=== PATIENT | male | born 1930 | race Caucasian/White ===

== ENCOUNTER 2018-06-21 21:03 | Inpatient (IN) | payer MEDICARE, BC ==
[~2018-06-21] VITALS: Ht 172.7 cm; Wt 56.5 kg
[~2018-06-21 21:03] MED LIST: ASPI-817 PO; ATEN-51 PO; LOSA50TA14 PO
[2018-06-22] VITALS (10 sets, daily range): BP systolic 117–147; BP diastolic 56–73; PULSE 55–80; RESP 18–20; Ht 172.7 cm; Wt 56.5 kg
[2018-06-22] MEDS ORDERED: HYDR-4012 PO (01:50)
[2018-06-22] MEDS ORDERED: SOD CHLORIDE 0.9% 1,000 ML IV SCH (02:27)
[2018-06-22] MEDS ORDERED: ACETAMINOPHEN 325 MG TAB PO PRN ×2 (02:30→03:30)
[2018-06-22] MEDS ORDERED: ONDANSETRON 4 MG INJ IV PRN (02:30)
--- NOTE | 2018-06-22 02:33 | ERD ---
ER Documentation Chief Complaint Chief Complaint bleeding rectally x 2days HPI This is an 87-year-old male with a history of a pacemaker placement and hypertension who presents to the ER for evaluation of right blood from the anus. The patient states that he has had rectal bleeding for approximately 2 days and states he is feeling slightly weak. The patient states that he is scheduled to have a pacemaker removal and replacement done next week and he was concerned and came to the ER for evaluation after speaking to his physician's office Dr. Bell who told him to come to the emergency room ROS All systems reviewed and are negative except as per history of present illness. Medications Home Meds Reported Medications Hydrocodone/Acetaminophen ([place] 7.5-325 Tablet) 1 Each Tablet, 1 EACH PO, TAB 06/22/18 Discontinued Reported Medications Atenolol* (Atenolol*) 25 Mg Tablet, 25 MG PO DAILY, TAB 04/01/15 Losartan Potassium* (Losartan Potassium*) 50 Mg Tablet, 25 MG PO DAILY, TAB 04/01/15 Aspirin* (Aspirin* EC) 81 Mg Tablet.dr, 81 MG PO DAILY, TAB 04/01/15 Allergies Allergies: Coded Allergies: No Known Allergies (Unverified Allergy, Unknown, 06/22/18) PMhx/Soc History of Surgery: Yes (PACEMAKER, LEFT SHOULDER OPA, MANUEL, INGUINAL HERNIA, TONSILLECTOMY) Anesthesia Reaction: No Hx Neurological Disorder: No Hx Respiratory Disorders: No Hx Cardiac Disorders: Yes (PT HAS ARTIFICIAL HEART VALVE) Hx Psychiatric Problems: No Hx Miscellaneous Medical Probl: No Hx Alcohol Use: No Hx Substance Use: No Hx Tobacco Use: No Smoking Status: Never smoker Physical Exam Vitals Vital Signs Date Temp Pulse Resp B/P (MAP) Pulse Ox O2 O2 Flow FiO2 Time Delivery Rate 06/21/18 97.9 64 20 138/70 94 21:13 (92) Physical Exam INITIAL VITAL SIGNS: Reviewed by me GENERAL: The patient is well developed and appropriate for usual state of health in no apparent distress HEENT: Pupils equal, round, and reactive to light. EOMI. There is no scleral icterus. NECK: C-spine is soft and supple, there is no meningismus. There is no cervical lymphadenopathy. LUNGS: Clear to auscultation bilaterally. There are no rales, wheezes or rhonchi. HEART: Regular rate and rhythm, no murmurs, clicks, rubs or gallops. ABDOMEN: Soft, non-tender, non-distended. There are bowel sounds in all four quadrants. No rebound or guarding. EXTREMITIES: There is no peripheral cyanosis or edema. No focal swelling or erythema. NEUROLOGICAL: The patient moves all four extremities with 5/5 strength. Cranial nerves II - XII are intact. Normal gait. Alert and oriented SKIN: There is no apparent rash or petechiae. Rectal exam: Dark red blood per rectum heme positive HEME/LYMPHATIC: There is no evidence of excessive bruising or lymphedema. PSYCHIATRIC: The patient does not appear anxious or depressed. Result Diagram: 06/22/18 0001 06/22/18 0001 Results 24 hrs Laboratory Tests Test 06/22/18 00:01 White Blood Count 8.5 10^3/ul Red Blood Count 4.74 10^6/ul Hemoglobin 13.8 g/dl Hematocrit 42.2 % Mean Corpuscular Volume 89.0 fl Mean Corpuscular Hemoglobin 29.1 pg Mean Corpuscular Hemoglobin Concent 32.7 g/dl Red Cell Distribution Width 12.9 % Platelet Count 216 10^3/UL Mean Platelet Volume 9.1 fl Immature Granulocytes % 0.500 % Neutrophils % 67.1 % Lymphocytes % 14.9 % Monocytes % 10.8 % Eosinophils % 5.8 % Basophils % 0.9 % Nucleated Red Blood Cells % 0.0 /100WBC Immature Granulocytes # 0.040 10^3/ul Neutrophils # 5.7 10^3/ul Lymphocytes # 1.3 10^3/ul Monocytes # 0.9 10^3/ul Eosinophils # 0.5 10^3/ul Basophils # 0.1 10^3/ul Nucleated Red Blood Cells # 0.0 10^3/ul Prothrombin Time 13.7 Sec Prothrombin Time Ratio 1.1 INR International Normalized Ratio 1.04 Activated Partial Thromboplast Time 30.0 Sec Sodium Level 142 mmol/L Potassium Level 4.4 mmol/L Chloride Level 106 mmol/L Carbon Dioxide Level 25 mmol/L Anion Gap 11 Blood Urea Nitrogen 33 mg/dl Creatinine 1.22 mg/dl Est Glomerular Filtrat Rate mL/min mL/min Glucose Level 87 mg/dl Calcium Level 10.8 mg/dl Total Bilirubin 0.6 mg/dl Direct Bilirubin 0.00 mg/dl Indirect Bilirubin 0.6 mg/dl Aspartate Amino Transf (AST/SGOT) 22 IU/L Alanine Aminotransferase (ALT/SGPT) 20 IU/L Alkaline Phosphatase 79 IU/L Troponin I 0.047 ng/ml Total Protein 7.5 g/dl Albumin 4.1 g/dl Globulin 3.40 g/dl Albumin/Globulin Ratio 1.20 Lipase 79 U/L Current Medications Medications Dose Sig/Estrellita Start Time Status Last (Trade) Ordered Route PRN Stop Time Admin Dose Reason Admin Sodium 1,000 ml @ [id number] IV 06/22/18 Chloride 80 mls/hr 02:27 06/22/18 14:56 Ondansetron 4 mg BRIDGE ORDER 06/22/18 HCl (Zofran PRN IV 02:30 06/23/18 Inj) NAUSEA AND/OR 02:29 VOMITING 650 mg ER BRIDGE 06/22/18 Acetaminophen PRN PO MILD 02:30 06/23/18 (Tylenol PAIN(1-3)OR 02:29 Tab) ELEVATED TEMP Procedures/MDM This 87-year-old male presents to the ER for evaluation of rectal bleeding. On my exam the patient had dark red blood per rectum which was heme positive. According to the patient and the patient's family members were at bedside this patient was sent in by his primary care physician Arabella for evaluation. This patient does have a hemoglobin of 13.8. He is remained hemodynamically stable. I advised the patient I cannot get a hold of his primary care physician however patient's family is adamant that they were told to come to the ER for admission. Since we have paged his PCP 3 times and has not heard back with the patient will be admitted to panel physician Dr. Arrington Departure Diagnosis: Primary Impression: Rectal bleeding Condition: NISHI Laurent DO Jun 22, 2018 02:33
[2018-06-22] MEDS ORDERED: DEXTROSE 5%-0.45% NACL 1,000 ML IV SCH (03:11)
[2018-06-22] MEDS ORDERED: ZOLPIDEM 5 MG TAB PO PRN (03:30)
[2018-06-22] MEDS ORDERED: ONDANSETRON 4 MG TAB PO PRN (03:30)
[2018-06-22] MEDS ORDERED: NACL 0.9% 3 ML SYG IV SCH (03:30)
[2018-06-22] MEDS: ATENOLOL 25 MG TAB PO SCH (09:00)
[2018-06-22] MEDS: LOSARTAN 25 MG TAB PO SCH (10:11)
[2018-06-22] MEDS: SOD CHLORIDE 0.9% 1,000 ML IV SCH (11:30)
--- NOTE | 2018-06-22 12:43 | HP ---
DATE OF ADMISSION: 06/22/2018 IDENTIFYING DATA: The patient is an 87-year-old male admitted to the hospital with the sudden onset of rectal bleeding. HISTORICAL EVENTS: The patient states it was 2 days ago that when sensing the need to have a bowel m ovement he noted some bright red blood in the toilet water in his stool and when "wiping" noted blood on the tissue paper. At that time, he had no discomfort when moving his bowels. Denied nausea, vom iting or abdominal pain. He was asymptomatic until the morning of admission when again noted some br ight red blood that occurred in a similar fashion. More importantly, it was late yesterday afternoon that he noted more profound bright red blood per rectum having several episodes of the same, sensing each time the need to move his bowels and only on one occasion was there any formed stool. Because of this, he elected to come to [facility] ER. He had no abdominal pain and vomiting and his bowel pattern prior to this episode was unremarkable, having no difficulty with rectal pain, bloatin g, diarrhea, weight loss. He has had some unchanged mild shortness of breath without chest pain. He denies dysuria or hematuria. MEDICATIONS: 1. Baby aspirin. 2. Cozaar 25 mg per day. 3. Atenolol 25 day. PAST MEDICAL HISTORY: Includes: 1. Aortic valve replacement in 02/2003. 2. History of hypertension. 3. Chronic interstitial lung disease. 4. History of prostate cancer undergoing radiation therapy for the same. 5. Placement of a pacemaker in 06/2005 with the need for replacement of a battery. 6. History of right leg sciatica, now quiescent. SOCIAL HISTORY: Does not smoke and does not drink. FAMILY HISTORY: To be reviewed later. PHYSICAL EXAMINATION: GENERAL: [place] elderly male in no acute distress. VITAL SIGNS: BP 117/78, pulse 72, respirations were 18. He was afebrile. EYES: Extraocular muscles were full. NOSE, MOUTH, AND THROAT: Normal. NECK: Supple. There was no jugular venous distention, thyroid enlargement or adenopathy. LUNGS: Basilar rales bilaterally. HEART: Rhythm regular. No third sound. I/ systolic murmur. ABDOMEN: Nontender. Liver and spleen were not palpable. No mass or tenderness were noted. RECTAL: No masses, bright red blood on the examining finger. EXTREMITIES: No edema. Calves nontender. Pulses were reduced. NEUROLOGIC: No lateralizing motor weakness. IMPRESSION: 1. Rectal bleeding, likely diverticular. Malignancy needs to be excluded. Last colonoscopy was in excess of 10 years ago. GI to see. 2. Prior placement of a pacemaker with now need for battery replacement. Will transfer to monitored floor. 3. Known interstitial lung disease. PLAN: As above, to be monitored. GI to see. Repeat hematocrit to be obtained in about 6 hours. Wi ll type and cross for 2 units of packed cells if needed. Dictated By: MYRANDA PÉREZ MD MR/NTS Conf#: [id number] DID#: [id number]
--- NOTE | 2018-06-22 20:51 | CONS ---
DATE OF ADMISSION: 06/22/2018 DATE OF CONSULTATION: TYPE OF CONSULTATION: Gastroenterology. Dear Dr. Pérez: Thank you for asking me to see Mr. Hammonds in GI consultation. HISTORY OF PRESENT ILLNESS: As you know, the patient is an 87-year-old white gentleman who has been experiencing the passing of bloody stools for the past 2 weeks on and off. He would bleed 1 time and the next 4 or 5 days he would not and again he would start bleeding again. Stool is soft, sometimes watery, mixed with blood, and no significant abdominal discomfort or cramps. The patient has not austin d any similar rectal bleeding in the past. He has a history of a colonoscopy many years ago. He als o has a history of having a valve replacement in the heart many years ago and he does not believe yenny t he is taking any blood-thinning medications. MEDICATIONS PRIOR TO THE ADMISSION: [place]. HOSPITAL MEDICATIONS: Currently in the hospital, the medications include: 1. Atenolol. 2. Cozaar. 3. Zofran. 4. Ambien. SOCIAL HISTORY: The patient does not smoke or drink. 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 PAST SURGICAL HISTORY: None other than the aortic valve replacement. He is not on any blood-thinnin g medications. PHYSICAL EXAMINATION: GENERAL: The patient is an 87-year-old white gentleman who at this time is alert. He is well built. VITAL SIGNS: He is afebrile. The blood pressure is 121/56. CARDIOVASCULAR: Normal heart sounds. RESPIRATORY: Normal breath sounds. ABDOMEN: Showed soft abdomen with no palpable masses. RECTAL: Exam showed evidence of dark red blood. LABORATORY WORKUP: On admission, done this morning, hemoglobin 13.8. This afternoon, it dropped peter n to 12.3. The coagulation prothrombin time is 13.7. INR is 1.04. The chemistry: Potassium 4.4, c alcium 10.8, bilirubin 0.6, AST 22, ALT 20, alkaline phosphatase 79, lipase is 79. The GI bleeding s can was ordered by me and it was found to be negative. CLINICAL IMPRESSION: The patient presenting with: 1. History of rectal bleeding, likely lower gastrointestinal sources. Rule out ischemic colitis, ru le out colorectal neoplasm, diverticulosis, etc. 2. He has history of a pacemaker placed in the past and history of chronic interstitial lung disease and prostate cancer, undergoing radiation therapy. 3. History of hypertension. 4. Also has a history of sciatica. 5. He had a pacemaker put in in 2005 and this is due for a change of the pacemaker to be performed b ecause of battery life which is coming to end. PLAN: At this time, recommend EGD and colonoscopy and also recommend cardiology consultation for a c ardiac clearance from the pacemaker standpoint. Dictated By: SAAD BARKSDALE MD NC/NTS Conf#: [id number] DID#: [id number] CC: MYRANDA PÉREZ MD;*End*
[2018-06-23] VITALS (11 sets, daily range): BP systolic 106–127; BP diastolic 52–65; PULSE 63–77; RESP 20
[2018-06-23] MEDS: SOD CHLORIDE 0.9% 1,000 ML IV SCH (06:56)
[2018-06-23] MEDS: ATENOLOL 25 MG TAB PO SCH (09:00)
[2018-06-23] MEDS: LOSARTAN 25 MG TAB PO SCH (09:03)
[2018-06-23] MEDS ORDERED: LACTULOSE 30ML CUP PO ONE (12:00)
[2018-06-23] MEDS ORDERED: LACTULOSE 30ML CUP GTB SCH (12:00)
--- NOTE | 2018-06-23 12:19 | PN ---
Date/Time of Note Date/Time of Note DATE: 06/23/18 TIME: 12:16 Assessment/Plan VTE Prophylaxis Risk score (from Ns)>0 risk: 3 SCD applied (from Ns): Yes Pharmacological prophylaxis: other Lines/Catheters IV Catheter Type (from [facility]): Peripheral IV Assessment/Plan Assessment/Plan 1. Lower gi bleeding, source to be determined once pacemaker status clarified with stable Hct. 2. Interstitial lung dz, will ck room air oxygen sat., 3. Aortic Valve prosthesis Result Diagram: 06/23/18 0521 06/23/18 0521 Results 24hrs Laboratory Tests Test 06/22/18 13:55 06/23/18 05:21 White Blood Count 7.2 8.4 Red Blood Count 4.16 L 3.99 L Hemoglobin 12.3 L 11.7 L Hematocrit 36.2 L 34.8 L Mean Corpuscular Volume 87.0 87.2 Mean Corpuscular Hemoglobin 29.6 29.3 Mean Corpuscular Hemoglobin Concent 34.0 33.6 Red Cell Distribution Width 13.0 12.8 Platelet Count 203 197 Mean Platelet Volume 9.4 9.8 Immature Granulocytes % 0.300 0.500 H Neutrophils % 65.6 67.6 Lymphocytes % 16.3 13.3 L Monocytes % 10.4 11.2 H Eosinophils % 6.1 6.2 Basophils % 1.3 1.2 Nucleated Red Blood Cells % 0.0 0.0 Immature Granulocytes # 0.020 0.040 H Neutrophils # 4.7 5.7 Lymphocytes # 1.2 1.1 Monocytes # 0.8 0.9 Eosinophils # 0.4 0.5 Basophils # 0.1 0.1 Nucleated Red Blood Cells # 0.0 0.0 Sodium Level 139 Potassium Level 4.3 Chloride Level 104 Carbon Dioxide Level 25 Anion Gap 10 Blood Urea Nitrogen 24 H Creatinine 1.13 Est Glomerular Filtrat Rate mL/min Glucose Level 78 Calcium Level 9.8 Phosphorus Level 3.0 Magnesium Level 1.9 Subjective 24 Hr Interval Summary Respiratory: No shortness of breath Cardiovascular: No chest pain, No orthopenea Gastrointestinal: other (was toldd by nursing assist that no blood was in his stool) Genitourinary: no complaints Musculoskeletal: no complaints Exam/Review of Systems Vital Signs Vitals Vital Signs Date Temp Pulse Resp B/P (MAP) Pulse Ox O2 O2 Flow FiO2 Time Delivery Rate 06/23/18 98.1 63 20 127/65 93 11:11 (85) 06/22/18 Room Air 08:19 Intake and Output 06/22/18 06/22/18 06/23/18 1515:00 23:00 07:00 IntakeIntake Total 315 ml 720 ml OutputOutput Total 750 ml BalanceBalance 315 ml -30 ml Exam Neck: No jvd Respiratory: diminished breath sounds (dry rales bilat) Cardiovascular: regular rate and rhythm Gastrointestinal: soft Extremities: No edema Medications Medications Current Medications IV Flush (NS 3 ml) 3 ml PER PROTOCOL IV ; Start 06/22/18 at 03:30 Ondansetron HCl (Zofran Tab) 4 mg Q6H PRN PO NAUSEA AND/OR VOMITING; Start 06/22/18 at 03:30 Acetaminophen (Tylenol Tab) 650 mg Q6H PRN PO PAIN LEVEL 1-3 OR FEVER; Start 06/22/18 at 03:30 Zolpidem Tartrate (Ambien) 5 mg QHS PRN PO SLEEP; Start 06/22/18 at 03:30 Atenolol (Tenormin) 25 mg DAILY PO ; Start 06/22/18 at 09:00 Losartan Potassium (Cozaar) 25 mg DAILY PO Last administered on 06/23/18at 09:03; Admin Dose 25 MG; Start 06/22/18 at 09:00 Sodium Chloride 1,000 ml @ 50 mls/hr Q20H IV Last administered on 06/23/18at 06:56; Admin Dose 50 MLS/HR; Start 06/22/18 at 11:00 Lactulose (Enulose) 20 gm Q3 GTB ; Start 06/23/18 at 12:00; Stop 06/23/18 at 22:00 MYRANDA PÉREZ MD Jun 23, 2018 12:19
--- NOTE | 2018-06-23 13:07 | CONS ---
Date/Time of Note Date/Time of Note DATE: 06/23/18 TIME: 12:50 Assessment/Plan Assessment/Plan Assessment/Plan 87 yowm w/ AVR (02/18), htn, ILD, s/p PPM (06/23), and sciatica who presents with GI bleed. Asked for a pre-op eval. Will interrogate pt's PPM ([employer]) - trying to reach the rep. Pt is followed by Dr. Ren ([facility]), so will also check office records for last interrogation and battery life. Pt thinks he has 4 months left. If that is the case, should be able to proceed w/ GI procedure. He is otherwise stable from a cardiac standpoint w/ no signs or symptoms of angina or CHF. Result Diagram: 06/23/1821 06/23/18 0521 Results 24hrs Laboratory Tests Test 06/22/18 13:55 06/23/18 05:21 White Blood Count 7.2 8.4 Red Blood Count 4.16 L 3.99 L Hemoglobin 12.3 L 11.7 L Hematocrit 36.2 L 34.8 L Mean Corpuscular Volume 87.0 87.2 Mean Corpuscular Hemoglobin 29.6 29.3 Mean Corpuscular Hemoglobin Concent 34.0 33.6 Red Cell Distribution Width 13.0 12.8 Platelet Count 203 197 Mean Platelet Volume 9.4 9.8 Immature Granulocytes % 0.300 0.500 H Neutrophils % 65.6 67.6 Lymphocytes % 16.3 13.3 L Monocytes % 10.4 11.2 H Eosinophils % 6.1 6.2 Basophils % 1.3 1.2 Nucleated Red Blood Cells % 0.0 0.0 Immature Granulocytes # 0.020 0.040 H Neutrophils # 4.7 5.7 Lymphocytes # 1.2 1.1 Monocytes # 0.8 0.9 Eosinophils # 0.4 0.5 Basophils # 0.1 0.1 Nucleated Red Blood Cells # 0.0 0.0 Sodium Level 139 Potassium Level 4.3 Chloride Level 104 Carbon Dioxide Level 25 Anion Gap 10 Blood Urea Nitrogen 24 H Creatinine 1.13 Est Glomerular Filtrat Rate mL/min Glucose Level 78 Calcium Level 9.8 Phosphorus Level 3.0 Magnesium Level 1.9 Consultation Date/Type/Reason Admit Date/Time Jun 22, 2018 at 02:28 Date of Consultation: Jun 23, 2018 Type of Consult Reason for Consultation PPM, cardiac clearance Hx of Present Illness 87 yowm w/ AVR (02/18), htn, ILD, s/p PPM (06/23), and sciatica who presents with GI bleed. Pt reported hematochezia two days ago. Denies abdominal pain. He denies cp or sob. He is followed [place] Dr. Preston Ren ([place] [facility] Pt states his PPM ([facility] [facility]) has 4 months left on it's battery. He is currently V-paced. Past Medical History AVR 02/18 htn ILD PPM 06/23 prostate CA sciatica Medications Current Medications IV Flush (NS 3 ml) 3 ml PER PROTOCOL IV ; Start 06/22/18 at 03:30 Ondansetron HCl (Zofran Tab) 4 mg Q6H PRN PO NAUSEA AND/OR VOMITING; Start 06/22/18 at 03:30 Acetaminophen (Tylenol Tab) 650 mg Q6H PRN PO PAIN LEVEL 1-3 OR FEVER; Start 06/22/18 at 03:30 Zolpidem Tartrate (Ambien) 5 mg QHS PRN PO SLEEP; Start 06/22/18 at 03:30 Atenolol (Tenormin) 25 mg DAILY PO ; Start 06/22/18 at 09:00 Losartan Potassium (Cozaar) 25 mg DAILY PO Last administered on 06/23/18at 09:03; Admin Dose 25 MG; Start 06/22/18 at 09:00 Sodium Chloride 1,000 ml @ 50 mls/hr Q20H IV Last administered on 06/23/18at 06:56; Admin Dose 50 MLS/HR; Start 06/22/18 at 11:00 Lactulose (Enulose) 20 gm Q3 GTB ; Start 06/23/18 at 12:00; Stop 06/23/18 at 22:00 Allergies: Coded Allergies: No Known Allergies (Unverified Allergy, Unknown, 06/22/18) Social History Smoking Status: Former smoker Exam/Review of Systems Vital Signs Vitals Vital Signs Date Temp Pulse Resp B/P (MAP) Pulse Ox O2 O2 Flow FiO2 Time Delivery Rate 06/23/18 98.1 63 20 127/65 93 11:11 (85) 1/5/19 Room Air 08:19 Intake and Output 06/22/18 06/22/18 06/23/18 1515:00 23:00 07:00 IntakeIntake Total 315 ml 720 ml OutputOutput Total 750 ml BalanceBalance 315 ml -30 ml Exam Constitutional: alert; No distress Neck: supple; No jvd Respiratory: clear to auscultation Cardiovascular: regular rate and rhythm, other (1/6 KIKI) Extremities: No edema Neurological: nl mental status Medications Medications Current Medications IV Flush (NS 3 ml) 3 ml PER PROTOCOL IV ; Start 06/22/18 at 03:30 Ondansetron HCl (Zofran Tab) 4 mg Q6H PRN PO NAUSEA AND/OR VOMITING; Start 06/22/18 at 03:30 Acetaminophen (Tylenol Tab) 650 mg Q6H PRN PO PAIN LEVEL 1-3 OR FEVER; Start 06/22/18 at 03:30 Zolpidem Tartrate (Ambien) 5 mg QHS PRN PO SLEEP; Start 06/22/18 at 03:30 Atenolol (Tenormin) 25 mg DAILY PO ; Start 06/22/18 at 09:00 Losartan Potassium (Cozaar) 25 mg DAILY PO Last administered on 06/23/18at 09:03; Admin Dose 25 MG; Start 06/22/18 at 09:00 Sodium Chloride 1,000 ml @ 50 mls/hr Q20H IV Last administered on 06/23/18at 06:56; Admin Dose 50 MLS/HR; Start 06/22/18 at 11:00 Lactulose (Enulose) 20 gm Q3 GTB ; Start 06/23/18 at 12:00; Stop 06/23/18 at 22:00 Imaging Imaging Tele - V-paced @ [address] SANA MEYERS Jun 23, 2018 13:00
[2018-06-24] VITALS (12 sets, daily range): BP systolic 91–116; BP diastolic 55–66; PULSE 52–81; RESP 18–20
[2018-06-24] MEDS: SOD CHLORIDE 0.9% 1,000 ML IV SCH (05:42)
--- NOTE | 2018-06-24 08:52 | PN ---
Date/Time of Note Date/Time of Note DATE: 06/24/18 TIME: 08:50 Assessment/Plan VTE Prophylaxis Risk score [place]from [facility] [place] risk: 3 SCD applied (from [facility] [place]): Yes Pharmacological prophylaxis: NA/contraindicated (gi bleeding) Pharm contraindication: bleeding Lines/Catheters IV Catheter Type (from [facility]): Peripheral IV Assessment/Plan Assessment/Plan 1. Lower gi bleeding has clinically abated, colonoscopy pending 2. Aortic valve dz, stable 3. Paced rhythm, per cardiology pacemaker battery will last additional 30d, ? replace post colonoscopy- will rev with cardilogy 4. Interstitial lung dz, chronic, abd pending Result Diagram: 06/24/18 0518 06/23/18 0521 Results 24hrs Laboratory Tests Test 06/24/18 05:00 06/24/18 05:18 06/24/18 08:00 Urine Color STRAW Urine Clarity CLEAR Urine pH 5.0 Urine Specific [place] 1.008 Urine Ketones NEGATIVE Urine Nitrite NEGATIVE Urine Bilirubin NEGATIVE Urine Urobilinogen NEGATIVE Urine Leukocyte Esterase NEGATIVE Urine Hemoglobin NEGATIVE Urine Glucose NEGATIVE Urine Total Protein NEGATIVE White Blood Count 7.5 Red Blood Count 4.18 L Hemoglobin 12.4 L Hematocrit 36.7 L Mean Corpuscular Volume 87.8 Mean Corpuscular Hemoglobin 29.7 Mean Corpuscular 33.8 Hemoglobin Concent Red Cell Distribution Width 12.6 Platelet Count 207 Mean Platelet Volume 9.3 Immature Granulocytes % 0.300 Neutrophils % 65.2 Lymphocytes % 15.4 Monocytes % 11.9 H Eosinophils % 6.1 Basophils % 1.1 Nucleated Red Blood Cells % 0.0 Immature Granulocytes # 0.020 Neutrophils # 4.9 Lymphocytes # 1.2 Monocytes # 0.9 Eosinophils # 0.5 Basophils # 0.1 Nucleated Red Blood Cells # 0.0 Blood Gas Specimen Source Blood arterial Arterial Blood Date Drawn 06/24/2018 8:10:03 AM Arterial Blood pH 7.429 (Temp corrected) Arterial Blood pCO2 35.9 (Temp correct) Arterial Blood pO2 71.1 L (Temp corrected) Arterial Blood HCO3 23.2 Arterial Blood Base Excess -0.6 Arterial Blood 94.6 L Oxygen Saturation Clifford Test ACCEPTAB Arterial Blood Gas Right Radial Puncture Site Arterial 1.2 Blood Carboxyhemoglobin Arterial Blood Methemoglobin 0.1 Blood Gas A-a O2 Differential 35.6 H Oxyhemoglobin Percent 93.4 Blood Gas Temperature 37.0 Blood Gas Modality ROOM AIR FiO2 21.0 Blood Gas Notified Whom TM Blood Gas Notified Time 06/24/2018 8:19:35 AM Subjective 24 Hr Interval Summary Respiratory: No cough, No shortness of breath Cardiovascular: No chest pain, No orthopenea Gastrointestinal: other (has not had bm) Genitourinary: no complaints Exam/Review of Systems Vital Signs Vitals Vital Signs Date Temp Pulse Resp B/P (MAP) Pulse Ox O2 O2 Flow FiO2 Time Delivery Rate 06/24/18 98.3 78 18 111/61 96 07:31 (78) 06/22/18 Room Air 08:19 Intake and Output 06/23/18 06/23/18 06/24/18 1515:00 23:00 07:00 IntakeIntake Total 550 ml 720 ml OutputOutput Total 550 ml 775 ml BalanceBalance 0 ml -55 ml Exam Neck: No jvd Respiratory: clear to auscultation Cardiovascular: regular rate and rhythm Gastrointestinal: soft; No hepatomegaly, No splenomegaly Extremities: No edema Medications Medications Current Medications IV Flush (NS 3 ml) 3 ml PER PROTOCOL IV ; Start 06/22/18 at 03:30 Ondansetron HCl (Zofran Tab) 4 mg Q6H PRN PO NAUSEA AND/OR VOMITING; Start 06/22/18 at 03:30 Acetaminophen (Tylenol Tab) 650 mg Q6H PRN PO PAIN LEVEL 1-3 OR FEVER; Start 06/22/18 at 03:30 Zolpidem Tartrate (Ambien) 5 mg QHS PRN PO SLEEP; Start 06/22/18 at 03:30 Atenolol (Tenormin) 25 mg DAILY PO ; Start 06/22/18 at 09:00 Losartan Potassium (Cozaar) 25 mg DAILY PO Last administered on 06/23/18at 09:03; Admin Dose 25 MG; Start 06/22/18 at 09:00 Sodium Chloride 1,000 ml @ 50 mls/hr Q20H IV Last administered on 06/24/18at 05:42; Admin Dose 50 MLS/HR; Start 06/22/18 at 11:00 MYRANDA PÉREZ MD Jun 24, 2018 08:52
--- NOTE | 2018-06-24 09:03 | PN ---
DATE: 06/23/2018 SUBJECTIVE: The patient was admitted with rectal bleeding, etiology not known. GI bleeding scan was negative. Hemoglobin dropped to 11.7 from 13.8. He had no bleeding from the rectum today. He has got a pacemaker whose battery life is coming to the end. He needs EGD, colonoscopy. PLAN: The EGD and colonoscopy will be performed once the battery is fixed on his pacemaker. Dictated By: SAAD SMITH/NTS Conf#: [id number] DID#: [id number] CC: MYRANDA PÉREZ MD;*EndCC*
[2018-06-24] MEDS: ATENOLOL 25 MG TAB PO SCH (09:43)
[2018-06-24] MEDS: LOSARTAN 25 MG TAB PO SCH (09:43)
--- NOTE | 2018-06-24 14:41 | CONS ---
DATE OF ADMISSION: 06/22/2018 DATE OF CONSULTATION: The patient at this time is admitted for GI bleeding and he has rectal bleeding as well as a history of upper GI symptoms. Rule out peptic ulcer disease, colorectal neoplasm, diverticulosis, etc. He had issues with a pacemaker. According to Dr. Bell the pacemaker will be fine for 30 days as fa r as the battery is concerned. PHYSICAL EXAMINATION: GENERAL: He is alert. VITAL SIGNS: Afebrile. Temperature is 97.1, blood pressure 91/55. CARDIOVASCULAR: Normal heart sounds. RESPIRATORY: Normal breath sounds. ABDOMEN: Unremarkable. LABORATORY WORKUP: Hemoglobin is in the range of 11.4 CLINICAL IMPRESSION: Gastrointestinal bleeding, rule out bleeding ulcer disease, rule out colorectal neoplasm, diverticulosis. PLAN: Recommend EGD, colonoscopy tomorrow. Dictated By: SAAD BARKSDALE MD NC/NTS Conf#: [id number] DID#: [id number] CC: MYRANDA BELL MD;*EndCC*
[2018-06-24] MEDS: POLYETHYLENE GLYCOL 17 GM PACKET PO SCH ×2 (15:48→18:11)
[2018-06-24] MEDS: LACTULOSE 30ML CUP PO SCH ×3 (15:48→21:46)
--- NOTE | 2018-06-24 23:04 | CONS ---
Date/Time of Note Date/Time of Note DATE: 06/24/18 TIME: 22:56 Assessment/Plan Assessment/Plan Hospital Course GI bleed- lower, stable. plan for egd/colon tomorrow. 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 plan for endoscopy - s/p PPM, dependent. needs ppm gen change tonya at [facility] for 06/26 will cancel and reschedule. recommend clinical stability and no recurrent bleeding prior to proceeding with device placement. given EOL 1 mo can reschedule for next 1-2 weeks. - s/p avr stable Result Diagram: 06/24/18 0518 06/24/18 1437 Results 24hrs Laboratory Tests Test 06/24/18 05:00 06/24/18 05:18 06/24/18 08:00 06/24/18 14:37 Urine Color STRAW Urine Clarity CLEAR Urine pH 5.0 Urine Specific 1.008 [place] Urine Ketones NEGATIVE Urine Nitrite NEGATIVE Urine Bilirubin NEGATIVE Urine Urobilinogen NEGATIVE Urine Leukocyte NEGATIVE Esterase Urine Hemoglobin NEGATIVE Urine Glucose NEGATIVE Urine Total NEGATIVE Protein White Blood Count 7.5 Red Blood Count 4.18 L Hemoglobin 12.4 L Hematocrit 36.7 L Mean Corpuscular 87.8 Volume Mean Corpuscular 29.7 Hemoglobin Mean Corpuscular 33.8 Hemoglobin Concent Red Cell 12.6 Distribution Width Platelet Count 207 Mean Platelet 9.3 Volume Immature 0.300 Granulocytes % Neutrophils % 65.2 Lymphocytes % 15.4 Monocytes % 11.9 H Eosinophils % 6.1 Basophils % 1.1 Nucleated Red 0.0 Blood Cells % Immature 0.020 Granulocytes # Neutrophils # 4.9 Lymphocytes # 1.2 Monocytes # 0.9 Eosinophils # 0.5 Basophils # 0.1 Nucleated Red 0.0 Blood Cells # Blood Gas Specimen Blood arterial Source Arterial Blood 06/24/2018 8:10:03 Date Drawn AM Arterial Blood pH 7.429 (Temp corrected) Arterial Blood 35.9 pCO2 (Temp correct) Arterial Blood pO2 71.1 L (Temp corrected) Arterial Blood 23.2 HCO3 Arterial Blood -0.6 Base Excess Arterial Blood 94.6 L Oxygen Saturation Clifford Test ACCEPTAB Arterial Blood Gas Right Radial Puncture Site Arterial 1.2 Blood Carboxyhemog lobin Arterial Blood 0.1 Methemoglobin Blood Gas A-a O2 35.6 H Differential Oxyhemoglobin 93.4 Percent Blood Gas 37.0 Temperature Blood Gas Modality ROOM AIR FiO2 21.0 Blood Gas Notified TM Whom Blood Gas Notified 06/24/2018 8:19:35 Time AM Sodium Level 136 Potassium Level 4.4 Chloride Level 103 Carbon Dioxide 26 Level Anion Gap 7 Blood Urea 20 Nitrogen Creatinine 1.09 Est Glomerular Filtrat Rate mL/min Glucose Level 90 Calcium Level 9.9 Consultation Date/Type/Reason Admit Date/Time Jun 22, 2018 at 02:28 Initial Consult Date 06/23/18 Type of Consult cardiology Reason for Consultation ppm Requesting Provider: MYRANDA PÉREZ MD 24 HR Interval Summary Free Text/Dictation no acute events. no cp/sob/palp/dizziness. small blood in stool during colonscopy prep he states. no eliecer bleeding. Detailed Summary Eyes: no complaints ENT: no complaints Respiratory: no complaints Cardiovascular: no complaints Gastrointestinal: blood Exam/Review of Systems Vital Signs Vitals Vital Signs Date Temp Pulse Resp B/P (MAP) Pulse Ox O2 O2 Flow FiO2 Time Delivery Rate 06/24/18 61 21:06 06/24/18 97.9 20 116/61 98 19:50 (79) 06/24/18 Nasal 2.0 08:00 Cannula Intake and Output 06/23/18 06/23/18 06/24/18 1515:00 23:00 07:00 IntakeIntake Total 550 ml 720 ml OutputOutput Total 550 ml 775 ml BalanceBalance 0 ml -55 ml Exam Constitutional: alert, oriented Psych: no complaints Head: normocephalic Eyes: nl conjunctiva, EOMI ENMT: nl nasal mucosa & septum Neck: supple, non-tender; No jvd Respiratory: clear to auscultation, normal air movement Cardiovascular: regular rate and rhythm, nl pulses, systolic murmur; No edema Gastrointestinal: soft, non-tender Musculoskeletal: nl gait and stance Extremities: normal pulses 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, nl speech, nl strength Medications Medications Current Medications IV Flush (NS 3 ml) 3 ml PER PROTOCOL IV ; Start 06/22/18 at 03:30 Ondansetron HCl (Zofran Tab) 4 mg Q6H PRN PO NAUSEA AND/OR VOMITING; Start 06/22/18 at 03:30 Acetaminophen (Tylenol Tab) 650 mg Q6H PRN PO PAIN LEVEL 1-3 OR FEVER; Start 06/22/18 at 03:30 Zolpidem Tartrate (Ambien) 5 mg QHS PRN PO SLEEP; Start 06/22/18 at 03:30 Atenolol (Tenormin) 25 mg DAILY PO Last administered on 06/24/18at 09:43; Admin Dose 25 MG; Start 06/22/18 at 09:00 Losartan Potassium (Cozaar) 25 mg DAILY PO Last administered on 06/24/18at 09:43; Admin Dose 25 MG; Start 06/22/18 at 09:00 Sodium Chloride 1,000 ml @ 50 mls/hr Q20H IV Last administered on 06/24/18at 05:42; Admin Dose 50 MLS/HR; Start 06/22/18 at 11:00 Lactulose (Enulose) 20 gm Q3 PO Last administered on 06/24/18at 21:46; Admin Dose 20 GM; Start 06/24/18 at 15:00 Imaging Imaging cxr report reviewed ine EVERARDO Vizcarra Jun 24, 2018 23:04
[2018-06-25] VITALS (24 sets, daily range): BP systolic 91–124; BP diastolic 48–69; PULSE 68–98; RESP 16–28
[2018-06-25] MEDS: LACTULOSE 30ML CUP PO SCH ×6 (00:53→15:00)
[2018-06-25] MEDS: SOD CHLORIDE 0.9% 1,000 ML IV SCH ×2 (00:54→19:00)
[2018-06-25] MEDS: LOSARTAN 25 MG TAB PO SCH (08:20)
[2018-06-25] MEDS: ATENOLOL 25 MG TAB PO SCH (08:21)
--- NOTE | 2018-06-25 08:58 | PN ---
Date/Time of Note Date/Time of Note DATE: 06/25/18 TIME: 08:56 Assessment/Plan VTE Prophylaxis Risk score (from Ns)>0 risk: 6 SCD applied (from Ns): Yes Pharmacological prophylaxis: other (gi bleeding) Lines/Catheters IV Catheter Type (from Nrsg): Peripheral IV Assessment/Plan Assessment/Plan 1. Lower gi bleeding, colon planned today 2. Paced rhythm, cards note rev, still would prefer pacemaker batter change this admit if colon intervention uneventful 3. Labs rev 4. Interstitial lung dz, abg noted Result Diagram: 06/25/18 0453 06/25/18 045 Results 24hrs Laboratory Tests Test 06/24/18 14:37 06/25/18 04:53 Sodium Level 136 141 Potassium Level 4.4 4.2 Chloride Level 103 107 Carbon Dioxide Level 26 23 Anion Gap 7 11 Blood Urea Nitrogen 20 16 Creatinine 1.09 1.11 Est Glomerular Filtrat Rate mL/min Glucose Level 90 101 Calcium Level 9.9 10.2 White Blood Count 7.9 Red Blood Count 4.25 L Hemoglobin 12.6 L Hematocrit 37.5 L Mean Corpuscular Volume 88.2 Mean Corpuscular Hemoglobin 29.6 Mean Corpuscular Hemoglobin Concent 33.6 Red Cell Distribution Width 12.5 Platelet Count 217 Mean Platelet Volume 9.4 Immature Granulocytes % 0.300 Neutrophils % 68.0 Lymphocytes % 11.9 L Monocytes % 12.2 H Eosinophils % 6.6 Basophils % 1.0 Nucleated Red Blood Cells % 0.0 Immature Granulocytes # 0.020 Neutrophils # 5.4 Lymphocytes # 0.9 Monocytes # 1.0 H Eosinophils # 0.5 Basophils # 0.1 Nucleated Red Blood Cells # 0.0 Phosphorus Level 3.2 Magnesium Level 1.9 Subjective 24 Hr Interval Summary Cardiovascular: No chest pain, No edema, No lightheadedness, No orthopenea Gastrointestinal: no complaints, other (has not noted rec bleeding) Musculoskeletal: no complaints Exam/Review of Systems Vital Signs Vitals Vital Signs Date Temp Pulse Resp B/P (MAP) Pulse Ox O2 O2 Flow FiO2 Time Delivery Rate 06/25/18 Nasal 2.0 07:36 Cannula 06/25/18 97.8 73 18 117/62 97 07:30 (80) Intake and Output 06/24/18 06/24/18 06/25/18 1414:59 22:59 06:59 IntakeIntake Total 400 ml 1000 ml OutputOutput Total 175 ml 900 ml BalanceBalance 225 ml 100 ml Exam Neck: No jvd Respiratory: clear to auscultation Cardiovascular: regular rate and rhythm Gastrointestinal: soft Medications Medications Current Medications IV Flush (NS 3 ml) 3 ml PER PROTOCOL IV ; Start 06/22/18 at 03:30 Ondansetron HCl (Zofran Tab) 4 mg Q6H PRN PO NAUSEA AND/OR VOMITING; Start 06/22/18 at 03:30 Acetaminophen (Tylenol Tab) 650 mg Q6H PRN PO PAIN LEVEL 1-3 OR FEVER; Start 06/22/18 at 03:30 Zolpidem Tartrate (Ambien) 5 mg QHS PRN PO SLEEP; Start 06/22/18 at 03:30 Atenolol (Tenormin) 25 mg DAILY PO Last administered on 06/24/18at 09:43; Admin Dose 25 MG; Start 06/22/18 at 09:00 Losartan Potassium (Cozaar) 25 mg DAILY PO Last administered on 06/24/18at 09:43; Admin Dose 25 MG; Start 06/22/18 at 09:00 Sodium Chloride 1,000 ml @ 50 mls/hr Q20H IV Last administered on 06/25/18at 00:54; Admin Dose 50 MLS/HR; Start 06/22/18 at 11:00 Lactulose (Enulose) 20 gm Q3 PO Last administered on 06/25/18at 03:28; Admin Dose 20 GM; Start 06/24/18 at 15:00 MYRANDA PÉREZ MD Jun 25, 2018 08:57
--- NOTE | 2018-06-25 13:34 | PREAC ---
Date/Time of Note Date/Time of Note DATE: 06/25/18 TIME: 13:32 Anesthesia Eval and Record Evaluation Time Pre-Procedure Interview DATE: 06/25/18 TIME: 13:32 Age 87 Sex male NPO: 8 hrs Preoperative diagnosis Bloody stools Planned procedure EGD and colonoscopy Past Medical History Past Medical History: Includes Cardio: HTN, PPM/AICD, Other (aortic valve replacement ) Pulm: Other (Chronic interstitial lung disease.) Surgery & Anesthesia Issues No known issue Meds Anticoagulation: No Beta Mague within 24 hr: No Reason Beta Mague not given: Pt. 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 ) Reported Medications Hydrocodone/Acetaminophen (Coleman 7.5-325 Tablet) 1 Each Tablet, 1 EACH PO, TAB 06/22/18 Discontinued Reported Medications Atenolol* (Atenolol*) 25 Mg Tablet, 25 MG PO DAILY, TAB 04/01/15 Losartan Potassium* (Losartan Potassium*) 50 Mg Tablet, 25 MG PO DAILY, TAB 04/01/15 Aspirin* (Aspirin* EC) 81 Mg Tablet.dr, 81 MG PO DAILY, TAB 04/01/15 Current Medications IV Flush (NS 3 ml) 3 ml PER PROTOCOL IV ; Start 06/22/18 at 03:30 Ondansetron HCl (Zofran Tab) 4 mg Q6H PRN PO NAUSEA AND/OR VOMITING; Start 06/22/18 at 03:30 Acetaminophen (Tylenol Tab) 650 mg Q6H PRN PO PAIN LEVEL 1-3 OR FEVER; Start at 03:30 Zolpidem Tartrate (Ambien) 5 mg QHS PRN PO SLEEP; Start 06/22/18 at 03:30 Atenolol (Tenormin) 25 mg DAILY PO Last administered on 06/24/18at 09:43; Admin Dose 25 MG; Start 06/22/18 at 09:00 Losartan Potassium (Cozaar) 25 mg DAILY PO Last administered on 06/24/18at 09:43; Admin Dose 25 MG; Start 06/22/18 at 09:00 Sodium Chloride 1,000 ml @ 50 mls/hr Q20H IV Last administered on 06/25/18at 00:54; Admin Dose 50 MLS/HR; Start 06/22/18 at 11:00 Lactulose (Enulose) 20 gm Q3 PO Last administered on 06/25/18at 11:51; Admin Dose 20 GM; Start 06/24/18 at 15:00 Meds reviewed: Yes Allergies Coded Allergies: No Known Allergies (Unverified Allergy, Unknown, 06/22/18) Allergies Reviewed: Yes Labs/Studies Labs Reviewed: Reviewed by anesthesiologist Result Diagram: 06/25/18 0453 06/25/18 0453 Laboratory Tests 06/25/18 04:53 test: N/A Studies: ECG (v-paced) Pre-procedure Exam Last vitals Vital Signs Date Temp Pulse Resp B/P (MAP) Pulse Ox O2 O2 Flow FiO2 Time Delivery Rate 06/25/18 71 12:44 06/25/18 98.0 18 124/64 97 Room Air 12:00 (84) 06/25/18 2.0 07:36 Airway: Adequate mouth opening Mallampati: Mallampati I Teeth: Normal Lung: Normal Heart: Normal ASA Physical Status ASA physical status: 3 Emergency: None Planned Anesthetic General/MAC: MAC Pre-operative Attestations Prior to commencing anesthesia and surgery, the patient was re-evaluated, there was verification of: *The patient's identity *The results of appropriate recent lab work and preoperative vital signs *The above evaluation not changing prior to induction *Anesthetic plan, risk benefits, alternative and complications discussed with patient/family; questions answered; patient/family understands, accepts and wishes to proceed. VENKATESH MCCOLLUM Jun 25, 2018 13:34
[2018-06-25] MEDS ORDERED: LIDOCAINE 2% (SDV) 5 ML INJ ONE (15:22)
[2018-06-25] MEDS ORDERED: PROPOFOL 40 ML ONE (15:22)
[2018-06-25] MEDS ORDERED: ONDANSETRON 4 MG INJ IV PRN (15:30)
[2018-06-25] MEDS ORDERED: hydrALAzine 20 MG INJ IV PRN (15:30)
[2018-06-25] MEDS ORDERED: EPHEDrine SULFATE 50 MG/5 ML SYG IV PRN (15:30)
[2018-06-25] MEDS ORDERED: LABETALOL HCL 20MG INJ IV PRN (15:30)
[2018-06-25] MEDS ORDERED: ETOMIDATE 20 MG INJ ONE (15:45)
[2018-06-25] MEDS ORDERED: EPHEDrine SULFATE 50 MG/5 ML SYG ONE (16:20)
--- NOTE | 2018-06-25 16:38 | PAC ---
Date/Time of Note Date/Time of Note DATE: 06/25/18 TIME: 16:37 Post-Anesthesia Notes Post-Anesthesia Note Last documented vital signs Vital Signs Date Temp Pulse Resp B/P (MAP) Pulse Ox O2 O2 Flow FiO2 Time Delivery Rate 06/25/18 Non 15:34 Rebreather 06/25/18 71 12:44 06/25/18 98.0 18 124/64 97 12:00 (84) 06/25/18 2.0 07:36 Activity: WNL Respiratory function: WNL Cardiovascular function: WNL Mental status: Baseline Pain reasonably controlled: Yes Hydration appropriate: Yes Nausea/Vomiting absent: Yes Comments BP: 114/60 HR: 78 RR: 15 T: 98 SaO2: 99% DEXTER RODRIGUEZ MD Jun 25, 2018 16:38
[2018-06-26] VITALS (9 sets, daily range): BP systolic 98–121; BP diastolic 51–56; PULSE 57–87; RESP 18
[2018-06-26] MEDS: SOD CHLORIDE 0.9% 1,000 ML IV SCH ×2 (01:41→14:19)
[2018-06-26] MEDS: LOSARTAN 25 MG TAB PO SCH (08:29)
[2018-06-26] MEDS: ATENOLOL 25 MG TAB PO SCH (08:29)
--- NOTE | 2018-06-26 08:57 | PN ---
Date/Time of Note Date/Time of Note DATE: 06/26/18 TIME: 08:54 Assessment/Plan VTE Prophylaxis Risk score (from Ns)>0 risk: 4 SCD applied (from [facility]): Yes Pharmacological prophylaxis: NA/contraindicated Pharm contraindication: other Lines/Catheters IV Catheter Type (from [facility]): Peripheral IV Assessment/Plan Assessment/Plan 1. GI bleeding was sec gastric ulcer and esophagitis, PPI (not sure why not added yesterday post endo ?) added this am and will cont bid for 1 mos and stop asa 2. Will repeat Hct late this am to assure stability 3. Pacemaker dependent, cardiology to arrange OP batter replacement Result Diagram: 06/26/18 0419 06/25/18 0453 Results 24hrs Laboratory Tests Test 06/26/18 04:19 White Blood Count 7.6 Red Blood Count 3.75 L Hemoglobin 11.1 L Hematocrit 33.1 L Mean Corpuscular Volume 88.3 Mean Corpuscular Hemoglobin 29.6 Mean Corpuscular Hemoglobin Concent 33.5 Red Cell Distribution Width 13.0 Platelet Count 185 Mean Platelet Volume 9.4 Immature Granulocytes % 0.500 H Neutrophils % 66.1 Lymphocytes % 13.4 L Monocytes % 11.7 H Eosinophils % 7.5 H Basophils % 0.8 Nucleated Red Blood Cells % 0.0 Immature Granulocytes # 0.040 H Neutrophils # 5.0 Lymphocytes # 1.0 Monocytes # 0.9 Eosinophils # 0.6 H Basophils # 0.1 Nucleated Red Blood Cells # 0.0 Subjective 24 Hr Interval Summary Respiratory: shortness of breath; No cough Cardiovascular: No chest pain Gastrointestinal: no complaints (and no sxs gi bleeding) Genitourinary: no complaints Exam/Review of Systems Vital Signs Vitals Vital Signs Date Temp Pulse Resp B/P (MAP) Pulse Ox O2 O2 Flow FiO2 Time Delivery Rate 06/26/18 78 08:43 06/26/18 97.9 18 121/51 98 07:48 (74) 06/26/18 Nasal 2.0 07:28 Cannula Intake and Output 06/25/18 06/25/18 06/26/18 1515:00 23:00 07:00 IntakeIntake Total 220 ml OutputOutput Total 550 ml BalanceBalance -330 ml Exam Neck: No jvd Respiratory: clear to auscultation Cardiovascular: regular rate and rhythm Gastrointestinal: soft Extremities: No edema Medications Medications Current Medications IV Flush (NS 3 ml) 3 ml PER PROTOCOL IV ; Start 06/22/18 at 03:30 Ondansetron HCl (Zofran Tab) 4 mg Q6H PRN PO NAUSEA AND/OR VOMITING; Start 06/22/18 at 03:30 Acetaminophen (Tylenol Tab) 650 mg Q6H PRN PO PAIN LEVEL 1-3 OR FEVER; Start 06/22/18 at 03:30 Zolpidem Tartrate (Ambien) 5 mg QHS PRN PO SLEEP; Start 06/22/18 at 03:30 Atenolol (Tenormin) 25 mg DAILY PO Last administered on 06/26/18at 08:29; Admin Dose 25 MG; Start 06/22/18 at 09:00 Losartan Potassium (Cozaar) 25 mg DAILY PO Last administered on 06/26/18at 08:29; Admin Dose 25 MG; Start 06/22/18 at 09:00 Sodium Chloride 1,000 ml @ 50 mls/hr Q20H IV Last administered on 06/26/18at 01:41; Admin Dose 50 MLS/HR; Start 06/22/18 at 11:00 MYRANDA PÉREZ MD Jun 26, 2018 08:57
[2018-06-26] MEDS ORDERED: ATEN-138 PO (08:58)
[2018-06-26] MEDS ORDERED: PANT40TA4 PO (08:58)
[2018-06-26] MEDS ORDERED: LOSA25TA2 PO (08:58)
--- NOTE | 2018-06-26 11:37 | CONS ---
Date/Time of Note Date/Time of Note DATE: 06/26/18 TIME: 11:31 Assessment/Plan Assessment/Plan Hospital Course GI bleed- lower, stable.s/p egd/colon. found to have gastric ulcer and esophagitis, now on ppi off asa m s/p AVR stable h/o 3rd degree AVB s/p PPM. recommended gen change as outpt in next 1-2 weeks Recommendations - cont mgmt of gib per gi/pcp - agree with holding asa - PPM stable on tele and can be arranged as outpt for next 1-2 weeks. pt aware of recommendation and that it is safe to hold off on urgently replacing generator given concurrent acute illness Result Diagram: 06/26/18 1057 06/25/18 0453 Results 24hrs Laboratory Tests Test 06/26/18 04:19 06/26/18 10:57 White Blood Count 7.6 8.5 Red Blood Count 3.75 L 4.14 L Hemoglobin 11.1 L 12.2 L Hematocrit 33.1 L 36.7 L Mean Corpuscular Volume 88.3 88.6 Mean Corpuscular Hemoglobin 29.6 29.5 Mean Corpuscular Hemoglobin Concent 33.5 33.2 Red Cell Distribution Width 13.0 12.9 Platelet Count 185 217 Mean Platelet Volume 9.4 9.5 Immature Granulocytes % 0.500 H 0.200 Neutrophils % 66.1 69.5 Lymphocytes % 13.4 L 11.1 L Monocytes % 11.7 H 10.8 Eosinophils % 7.5 H 7.3 H Basophils % 0.8 1.1 Nucleated Red Blood Cells % 0.0 0.0 Immature Granulocytes # 0.040 H 0.020 Neutrophils # 5.0 5.9 Lymphocytes # 1.0 0.9 Monocytes # 0.9 0.9 Eosinophils # 0.6 H 0.6 H Basophils # 0.1 0.1 Nucleated Red Blood Cells # 0.0 0.0 Consultation Date/Type/Reason Admit Date/Time Jun 22, 2018 at 02:28 Initial Consult Date 06/23/18 Type of Consult cardiology Requesting Provider: MYRANDA PÉREZ MD 24 HR Interval Summary Free Text/Dictation pt s/p egd/colon. doing well, denies bleeding currently. case d/w EP Dr. Bourgeois and Dr. Berrios who reviewed pt ppm interrogation. They recommended outpatient generator change given recent acute illness and the fact that battery life is at least 1 mo. Pt did exhibit frustration given has been waiting for generator change for some time now he states. Pt is aware of recommendations as above, prefers to have procedure as close to home as possible he states. tele reviewed: v paced. Detailed Summary Eyes: no complaints ENT: no complaints Respiratory: no complaints Cardiovascular: no complaints Gastrointestinal: no complaints Genitourinary: no complaints Exam/Review of Systems Vital Signs Vitals Vital Signs Date Temp Pulse Resp B/P (MAP) Pulse Ox O2 O2 Flow FiO2 Time Delivery Rate 06/26/18 97.9 65 18 98/54 (69) 97 11:13 06/26/18 Nasal 2.0 07:28 Cannula Intake and Output 06/25/18 06/25/18 06/26/18 1515:00 23:00 07:00 IntakeIntake Total 220 ml OutputOutput Total 550 ml BalanceBalance -330 ml Exam Constitutional: alert, oriented Psych: no complaints Head: normocephalic Eyes: nl conjunctiva, EOMI ENMT: nl nasal mucosa & septum Neck: supple, non-tender; No jvd Respiratory: clear to auscultation, normal air movement Cardiovascular: regular rate and rhythm, nl pulses, systolic murmur; No edema Gastrointestinal: soft, non-tender Musculoskeletal: nl gait and stance Extremities: normal pulses 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, nl speech, nl strength Medications Medications Current Medications IV Flush (NS 3 ml) 3 ml PER PROTOCOL IV ; Start 06/22/18 at 03:30 Ondansetron HCl (Zofran Tab) 4 mg Q6H PRN PO NAUSEA AND/OR VOMITING; Start 06/22/18 at 03:30 Acetaminophen (Tylenol Tab) 650 mg Q6H PRN PO PAIN LEVEL 1-3 OR FEVER; Start 06/22/18 at 03:30 Zolpidem Tartrate (Ambien) 5 mg QHS PRN PO SLEEP; Start 06/22/18 at 03:30 Atenolol (Tenormin) 25 mg DAILY PO Last administered on 06/26/18at 08:29; Admin Dose 25 MG; Start 06/22/18 at 09:00 Losartan Potassium (Cozaar) 25 mg DAILY PO Last administered on 06/26/18at 08:29; Admin Dose 25 MG; Start 06/22/18 at 09:00 Sodium Chloride 1,000 ml @ 50 mls/hr Q20H IV Last administered on 06/26/18at 01:41; Admin Dose 50 MLS/HR; Start 06/22/18 at 11:00 Pantoprazole (Protonix Tab) 40 mg BID@06,18 PO ; Start 06/26/18 at 18:00 Imaging Imaging egd/colon results reviewed EVERARDO ALARCON Jun 26, 2018 11:37
[2018-06-26] MEDS ORDERED: PANTOPRAZOLE (EC) 40 MG TAB PO SCH (18:00)
--- NOTE | 2018-07-02 14:22 | DS ---
DATE OF ADMISSION: 06/22/2018 DATE OF DISCHARGE: 06/26/2018 HISTORY OF PRESENT ILLNESS: This 87-year-old male admitted with the sudden onset of rectal bleeding, noting bright red blood in the toilet water on several occasions, without change in bowel function o r dyschezia. PHYSICAL EXAMINATION: VITAL SIGNS: Blood pressure 117/78, pulse 72, respirations were 18. He was afebrile. CARDIOPULMONARY: Exam was unrevealing except for I/ systolic murmur. ABDOMEN: Unrevealing. Rectal exam bright red blood on the examining finger. EXTREMITIES: Revealing no edema. LABORATORY AND DIAGNOSTIC STUDIES: On admission, hematocrit 42.2, on discharge 36.7, white count and platelet count were normal. Room air, blood gases, pCO2 35.9, pH 7.49, PO2 71.1. Protime and PTT w ere normal. Chemistries unrevealing except for creatinine of 1.22. Liver tests were normal. Urinal ysis was unrevealing. IMAGING STUDIES: Included a nuclear scan to evaluate for bleeding site. It was negative. HOSPITAL COURSE: Included GI consultation by Dr. Estrada. He ultimately performed an endoscopy and c olonoscopy that revealed hemorrhoids as well as a peptic disease thought the likely source of bleedin g and recommended Protonix b.i.d. Avoidance of aspirin for at least 1 month. He was also seen by Dr Jorge Camacho and associates with respect to need a pacemaker battery which thought could be delayed unt il this procedure was complete. DISCHARGE DIAGNOSES: 1. Lower gastrointestinal bleeding. This is probably related to hemorrhoids and more importantly a gastric ulcer. 2. Known interstitial lung disease. 3. Heart block requiring pacemaker and need for battery replacement. PLAN: A regular diet, not to continue aspirin for at least 1 month, Cozaar 25, Atenolol 25. Follow up with cardiology with respect to needed pacemaker battery replacement. He was stable on discharge and diet. Dictated By: MYRANDA PÉREZ MD MR/NTS Conf#: [id number] DID#: [id number] CC: MYRANDA PÉREZ MD;*EndCC*
== END 2018-06-26 17:03 | disposition home health service (06) | DRG 378 ==
LOC: E/R 21:03 → 2NE 06-22 02:28 → EDBEDREQTM 06-22 03:14 → EDBEDREQ 06-22 03:14 → 6WM 06-22 10:49
PROVIDERS: ADMIT Internal Medicine; ATTEND Internal Medicine
PROC: 0DB78ZX Excision of Stomach, Pylorus, Via Natural or Artificial Opening Endoscopic, Diagnostic (ICD-10-PCS; principal; 2018-06-25 15:30)
PROC: 0DJD8ZZ Inspection of Lower Intestinal Tract, Via Natural or Artificial Opening Endoscopic (ICD-10-PCS; 2018-06-25 15:30)
DX: K62.5 Hemorrhage of anus and rectum (principal); J84.9 Interstitial pulmonary disease, unspecified; Z68.1 Body mass index [BMI] 19.9 or less, adult; K20.9 Esophagitis, unspecified; Z95.0 Presence of cardiac pacemaker; Z79.82 Long term (current) use of aspirin; Z95.2 Presence of prosthetic heart valve; K25.7 Chronic gastric ulcer without hemorrhage or perforation; K29.50 Unspecified chronic gastritis without bleeding; K57.30 Diverticulosis of large intestine without perforation or abscess without bleeding; K64.8 Other hemorrhoids
CPT/HCPCS: 36415; 36600; 78278; 80048; 80053; 81003; 82728; 82803; 83540; 83690; 83735; 84100; 84484; 85025; 85610; 85730; 86850; 86900; 86901; 86920; 88305; 88312; 88313; A9560; J7030; J7042